=== PATIENT | male | born 1970 | race Caucasian/White ===

== ENCOUNTER 2019-10-17 15:06 | Emergency (ER) | payer OTHER ==
[2019-10-17 15:14] VITALS: BP 164/108
[2019-10-17] MEDS ORDERED: CLINDAMYCIN 150 MG/ML VIAL 6 ML IM ONE (16:02)
[2019-10-17] MEDS ORDERED: predniSONE 20 MG TAB PO ONE (16:02)
--- NOTE | 2019-10-17 17:18 | Emergency Department Report ---
- General Chief complaint: Extremity Injury, Lower Stated complaint: BUG BITE Time Seen by Provider: 10/17/19 15:23 Source: patient Mode of arrival: Ambulatory Limitations: No Limitations - History of Present Illness Initial comments: This is a 48-year-old male nontoxic, well nourished in appearance, no acute signs of distress presents to the ED with c/o of left 2nd and 3rd toes and distal foot pain, redness, and some swelling x5 days. Patient that he is unsure what bit him while he was barefoot in the backyard. Patient he did feel a sting. Patient denies any pus or drainage. Patient denies any fever, chills, nausea, vomiting, chest pain, shortness of breath, headache or stiff neck. Patient denies any allergies or significant past medical history. MD complaint: insect bite/sting -: days(s) (5) Location: L foot Severity: mild Severity scale (0 -10): 8 Quality: aching Consistency: constant Improves with: none Worsens with: none Context: none Associated symptoms: denies other symptoms - Related Data Previous Rx's Medication Instructions Recorded Last Taken Type Clindamycin [Clindamycin CAP] 300 mg PO Q6H #28 capsule 10/17/19 Unknown Rx Prednisone [predniSONE 10 mg 10 mg PO .TAPER #1 tab.ds.pk 10/17/19 Unknown Rx (6-Day Pack, 21 Tabs)] Allergies Allergy/AdvReac Type Severity Reaction Status Date / Time No Known Allergies Allergy Unverified 04/25/15 07:48 Abscess Boil HPI - HPI Chief Complaint: Extremity Injury, Lower Stated Complaint: BUG BITE Time Seen by Provider: 10/17/19 15:23 Home Medications: Previous Rx's Medication Instructions Recorded Last Taken Type Clindamycin [Clindamycin CAP] 300 mg PO Q6H #28 capsule 10/17/19 Unknown Rx Prednisone [predniSONE 10 mg 10 mg PO .TAPER #1 tab.ds.pk 10/17/19 Unknown Rx (6-Day Pack, 21 Tabs)] Allergies/Adverse Reactions: Allergies Allergy/AdvReac Type Severity Reaction Status Date / Time No Known Allergies Allergy Unverified 04/25/15 07:48 ED Review of Systems ROS: Stated complaint: BUG BITE Other details as noted in HPI Constitutional: denies: chills, fever Eyes: denies: eye pain, eye discharge, vision change ENT: denies: ear pain, throat pain Respiratory: denies: cough, shortness of breath, wheezing Cardiovascular: denies: chest pain, palpitations Endocrine: no symptoms reported Gastrointestinal: denies: abdominal pain, nausea, diarrhea Genitourinary: denies: urgency, dysuria Musculoskeletal: denies: back pain, joint swelling, arthralgia Skin: denies: rash, lesions Neurological: denies: headache, weakness, paresthesias Psychiatric: denies: anxiety, depression Hematological/Lymphatic: denies: easy bleeding, easy bruising ED Past Medical Hx - Past Medical History Previous Medical History?: No - Surgical History Past Surgical History?: Yes Additional Surgical History: Testicular - Social History Smoking Status: Never Smoker Substance Use Type: Alcohol - Medications Home Medications: Home Medications Medication Instructions Recorded Confirmed Last Taken Type Clindamycin [Clindamycin CAP] 300 mg PO Q6H #28 capsule 10/17/19 Unknown Rx Prednisone [predniSONE 10 mg 10 mg PO .TAPER #1 tab.ds.pk 10/17/19 Unknown Rx (6-Day Pack, 21 Tabs)] ED Physical Exam - General Limitations: No Limitations General appearance: alert, in no apparent distress - Head Head exam: Present: atraumatic, normocephalic - Extremities Exam Extremities exam: Present: normal inspection, full ROM, tenderness, normal capillary refill. Absent: joint swelling, calf tenderness - Expanded Lower Extremity Exam Left Hip exam: Present: normal inspection, full ROM. Absent: tenderness, swelling Upper Leg exam: Present: normal inspection, full ROM. Absent: tenderness, swelling Knee exam: Present: normal inspection, full ROM. Absent: tenderness, swelling Lower Leg exam: Present: normal inspection, full ROM. Absent: tenderness, swelling Ankle exam: Present: normal inspection, full ROM. Absent: tenderness, swelling Foot/Toe exam: Present: normal inspection, full ROM, tenderness, swelling, erythema. Absent: abrasion, laceration, ecchymosis, deformity, crepidus, dislo cation, amputation, puncture wound, foreign body, tenderness at base of 5th metatarsal, nail avulsion, subungual hematoma Neuro vascular tendon exam: Present: no vascular compromise Gait: Positive: observed and limited by pain 1 - cellulitis present. no induration or flantuance noted - Back Exam Back exam: Present: normal inspection, full ROM - Neurological Exam Neurological exam: Present: alert, oriented X3, normal gait - Psychiatric Psychiatric exam: Present: normal affect, normal mood - Skin Skin exam: Present: warm, dry, intact, normal color. Absent: rash ED Course Vital Signs 10/17/19 15:11 Temperature 98.7 F Pulse Rate 82 Respiratory 16 Rate Blood Pressure 164/108 O2 Sat by Pulse 99 Oximetry - Reevaluation(s) Reevaluation #1: 10/17/19 17:16 Patient is speaking in full sentences with no signs of distress noted. ED Medical Decision Making - Radiology Data LEFT FOOT 3 VIEWS INDICATION / CLINICAL INFORMATION: Left foot pain and swelling; rule out osteomyelitis. Bit by insect or spider 5 days ago. COMPARISON: None available. FINDINGS: BONES / JOINT(S): There are mild degenerative changes involving the first metatarsophalangeal joint with subchondral cystic changes in the metatarsal head. There is no evidence of fracture, subluxation or destructive lesion. SOFT TISSUES: There is mild soft tissue swelling involving the dorsum of the foot. I do not identify a radiopaque foreign body. ADDITIONAL FINDINGS: None. Signer Name: Jhony Hopkins MD Signed: 10/17/2019 3:47 PM Workstation Name: [id number] - Medical Decision Making This is a 48-year-old male that presents with cellulitis. Patient is stable and was examined by me. There is no induration, fluctuance. X-ray has been obtained and does not show osteomyelitis. No signs of abscess formation. The area has been outlined with a permanent marker and patient was instructed to observe symptoms of increased redness or swelling and to return to the ER if this does occur. I will discharge patient with Clinda. Patient did receive a dose of Clinda and prednisone in the ER. Patient did receive a tetanus booster in the ER. Patient was referred to Follow-up with a primary care doctor in 3-5 days or if symptoms worsen and continue return to emergency room as soon as possible. At time of discharge, the patient does not seem toxic or ill in appearance. No acute signs of distress noted. Patient agrees to discharge treatment plan of care. No further questions noted by the patient. Critical care attestation.: If time is entered above; I have spent that time in minutes in the direct care of this critically ill patient, excluding procedure time. ED Disposition Clinical Impression: Cellulitis of left foot Disposition: DC-01 TO HOME OR SELFCARE Is pt being admited?: No Does the pt Need Aspirin: No Condition: Stable Instructions: Cellulitis (ED) Additional Instructions: Follow-up with a primary care doctor in 3-5 days or if symptoms worsen and continue return to emergency room as soon as possible. Prescriptions: Clindamycin [Clindamycin CAP] 300 mg PO Q6H #28 capsule Prednisone [predniSONE 10 mg (6-Day Pack, 21 Tabs)] 10 mg PO .TAPER #1 tab.ds.pk Referrals: PRIMARY MD FABRICIO [Primary Care Provider] - 3-5 Days LORRAINE MILLARD MD [Staff Physician] - 3-[address] [facility] [Provider Group] - 3-5 Days Forms: Work/School Release Form(ED)
== END 2019-10-17 17:27 | disposition home or self-care (01) ==
LOC: ED 15:06
DX: L03.116 Cellulitis of left lower limb (principal); Z98.890 Other specified postprocedural states; Z79.2 Long term (current) use of antibiotics; Z79.899 Other long term (current) drug therapy
CPT/HCPCS: 73630; 96372; 99283; J7512